=== PATIENT | male | born 1960 | race Caucasian/White ===

== ENCOUNTER → 2024-04-06 13:31 | Outpatient (CLI) | payer OTHER, SELFPAY | LOC: PHYS 13:34 | PROVIDERS: Family Provider Registered Nurse; PCP Registered Nurse; Referring Provider Registered Nurse; Visit Provider Registered Nurse | DX: M54.12 Radiculopathy, cervical region (principal); M54.16 Radiculopathy, lumbar region | CPT/HCPCS: 95886; 95911 ==

== ENCOUNTER → 2024-04-20 08:44 | Outpatient (CLI) | payer OTHER, SELFPAY | PROVIDERS: Family Provider Registered Nurse; PCP Registered Nurse; Referring Provider Registered Nurse; Visit Provider Registered Nurse | DX: M54.12 Radiculopathy, cervical region (principal); M54.16 Radiculopathy, lumbar region | CPT/HCPCS: 95885; 95886; 95913 ==